=== PATIENT | male | born 1945 | race Caucasian/White ===

== ENCOUNTER 2021-05-28 11:39 | Inpatient (IN) | payer MEDICARE, MEDICAID ==
[~2021-05-28] VITALS: Ht 160 cm; Wt 78.5 kg
[2021-05-28] MEDS ORDERED: CLONIDINE 0.1MG TABLET PO ONE (12:15)
[2021-05-28 12:35] LABS: BASOPHILS % 0.4 % (0.0-2.0); EOSINOPHILS % 1.8 % (0.0-5.0); HEMATOCRIT. 44.7 % (42.0-52.0); HEMOGLOBIN. 14.9 g/dL (14.0-18.0); MEAN CORPUSCULAR HEMOGLOBIN 29.4 pg (28.0-32.0); MEAN CORPUSCULAR VOLUME 88.2 fL (80.0-94.0); MEAN PLATELET VOLUME 9.3 fl (7.4-10.4); MONOCYTES % 4.2 % (2.0-8.0); NEUTROPHILS % 79.6 % (40.0-76.0); PLATELET 180 x1000/uL (130-400); RED BLOOD CELL COUNT 5.07 mill/uL (4.7-6.1); RED CELL DISTRIBUTION WIDTH 13.9 % (11.6-14.6)
[2021-05-28 12:42] LABS: CHLORIDE 104 mEq/L (98-107)
[2021-05-28] MEDS ORDERED: HYDRALAZINE 20MG/ML VIAL IV ONE (14:30)
[2021-05-28] MEDS ORDERED: CLONIDINE 0.1MG TABLET PO PRN (16:15)
[2021-05-28] MEDS ORDERED: AMLODIPINE 10MG TABLET PO NR (16:15)
[2021-05-28] MEDS ORDERED: ONDANSETRON HCL 4MG/2ML INJ IV PRN (16:15)
[2021-05-28 16:46] LABS: PROTHROMBIN TIME 10.8 sec (9.6-11.0)
[2021-05-28] MEDS ORDERED: HYDRALAZINE 20MG/ML VIAL IV PRN (17:00)
[2021-05-28] MEDS: BENAZEPRIL 10MG TABLET PO SCH (17:12)
[2021-05-28] MEDS: HYDRALAZINE HCL 50MG TABLET PO SCH ×2 (17:12→22:02)
[2021-05-28] MEDS: CARVEDILOL 6.25 MG TABLET PO SCH (21:07)
[2021-05-28 23:28] LABS: CREATINE KINASE 120 IU/L (39-308)
[2021-05-28 23:29] LABS: CREATINE KINASE MB FRACTION 1.6 ng/mL (0.5-3.6)
[2021-05-28] MEDS ORDERED: GABA-529 MT (23:32)
[2021-05-28 23:56] VITALS: BP 152/116
[2021-05-29] VITALS: BP 96/67
[2021-05-29] MEDS ORDERED: DEXTROSE 50% WATER 50ML SYRINGE IV PRN
[2021-05-29] MEDS ORDERED: ACETAMINOPHEN 325MG TABLET PO PRN
[2021-05-29 04:00] VITALS: BP_SYST 109; BP_SYST 113; BP_SYST 119; BP_DIAS 76; BP_DIAS 83; BP_DIAS 85
[2021-05-29] MEDS: INSULIN LISPRO 100 UNITS/ML SUBCUT SCH ×4 (05:55→21:10)
[2021-05-29] MEDS: BLOOD SUGAR DIAGNOSTIC STRIP TEST SCH ×4 (05:55→21:03)
[2021-05-29] MEDS: HYDRALAZINE HCL 50MG TABLET PO SCH ×3 (06:06→21:03)
[2021-05-29 08:00] VITALS: BP 124/81
[2021-05-29 08:21] LABS: BASOPHILS % 0.3 % (0.0-2.0); EOSINOPHILS % 0.1 % (0.0-5.0); HEMATOCRIT. 46.4 % (42.0-52.0); HEMOGLOBIN. 15.4 g/dL (14.0-18.0); LYMPHOCYTES % 10.8 % (20.0-50.0); MEAN CORPUSCULAR HEMOGLOBIN 29.6 pg (28.0-32.0); MEAN CORPUSCULAR VOLUME 89.1 fL (80.0-94.0); MEAN PLATELET VOLUME 10.5 fl (7.4-10.4); MONOCYTES % 6.7 % (2.0-8.0); NEUTROPHILS % 82.1 % (40.0-76.0); PLATELET 216 x1000/uL (130-400); RED CELL DISTRIBUTION WIDTH 13.9 % (11.6-14.6)
[2021-05-29 08:53] LABS: CHLORIDE 101 mEq/L (98-107)
[2021-05-29] MEDS: AMLODIPINE 10MG TABLET PO SCH (08:58)
[2021-05-29] MEDS: CARVEDILOL 6.25 MG TABLET PO SCH ×2 (08:58→21:00)
[2021-05-29] MEDS: BENAZEPRIL 10MG TABLET PO SCH (08:58)
[2021-05-29 09:15] LABS: LDL CHOLESTEROL 131 mg/dL (5-100)
[2021-05-29 09:16] LABS: CREATINE KINASE 194 IU/L (39-308)
[2021-05-29 09:17] LABS: HDL CHOLESTEROL 46 mg/dL (40-59)
[2021-05-29 09:19] LABS: CREATINE KINASE MB FRACTION 2.1 ng/mL (0.5-3.6)
[2021-05-29 12:00] VITALS: BP_SYST 120; BP_SYST 122; BP_SYST 123; BP_DIAS 66; BP_DIAS 73; BP_DIAS 77
[2021-05-29 16:00] VITALS: BP 121/70
[2021-05-29 20:00] VITALS: BP 109/68
[2021-05-29] MEDS ORDERED: ATORVASTATIN CALCIUM 40MG TABLET PO SCH (21:00)
[2021-05-30] VITALS: BP 98/66
[2021-05-30 04:00] VITALS: BP_SYST 114; BP_SYST 138; BP_SYST 139; BP_DIAS 78; BP_DIAS 92; BP_DIAS 98
[2021-05-30] MEDS: INSULIN LISPRO 100 UNITS/ML SUBCUT SCH ×2 (05:37→12:33)
[2021-05-30] MEDS: HYDRALAZINE HCL 50MG TABLET PO SCH (05:37)
[2021-05-30] MEDS: BLOOD SUGAR DIAGNOSTIC STRIP TEST SCH ×2 (05:37→12:10)
[2021-05-30 08:00] VITALS: BP_SYST 132; BP_SYST 139; BP_SYST 142; BP_DIAS 84; BP_DIAS 87; BP_DIAS 92
[2021-05-30] MEDS: AMLODIPINE 10MG TABLET PO SCH ×2 (08:37→08:39)
[2021-05-30] MEDS: CARVEDILOL 6.25 MG TABLET PO SCH ×2 (08:37→08:39)
[2021-05-30] MEDS: ASPIRIN 81MG TABLET PO SCH ×2 (08:37→08:39)
[2021-05-30] MEDS ORDERED: COR6 PO (09:48)
[2021-05-30] MEDS ORDERED: AMLO10TA80 PO (09:48)
[2021-05-30] MEDS ORDERED: HYDR-4135 PO (09:48)
[2021-05-30] MEDS ORDERED: LIP40 PO (09:48)
== END 2021-05-30 13:50 | disposition home or self-care (01) | DRG 73 ==
LOC: ER 11:51 → MICUSO 15:16 → EDBEDREQTM 15:21 → EDBEDREQ 15:21 → 8WST 21:29
PROVIDERS: ADMIT Family Medicine; ATTEND Family Medicine
DX: G90.8 Other disorders of autonomic nervous system (principal); I21.4 Non-ST elevation (NSTEMI) myocardial infarction; N17.0 Acute kidney failure with tubular necrosis; I16.1 Hypertensive emergency; E46 Unspecified protein-calorie malnutrition; Z20.822 Contact with and (suspected) exposure to COVID-19; I10 Essential (primary) hypertension; E11.9 Type 2 diabetes mellitus without complications; E78.5 Hyperlipidemia, unspecified; Z91.14 Patient's other noncompliance with medication regimen; Z68.30 Body mass index [BMI] 30.0-30.9, adult
CPT/HCPCS: 36415; 71045; 80053; 80061; 82550; 82553; 82962; 83036; 84484; 85025; 87426; 93005; 93306; 99291; J0360; J1815; J2405